=== PATIENT | male | born 1930 | race African-American/Black ===

== ENCOUNTER 2019-12-03 10:25 | Inpatient (IN) | payer OTHER ==
[~2019-12-03] VITALS: Ht 167.6 cm; Wt 83.1 kg
[2019-12-03 13:25] LABS: BASOPHIL % 0.1 % (0-2)
[2019-12-03 13:31] LABS: ALKALINE PHOSPHATASE 60 U/L (46-116); ALT/SGPT 37 U/L (16-63); AST/SGOT 18 U/L (15-37); BILIRUBIN TOTAL 0.3 mg/dL (0.20-1.00); CALCIUM 7.9 mg/dL (8.5-10.1); CARBON DIOXIDE 17.9 mmol/L (21-32); CHLORIDE SERUM 112 mmol/L (98-107); GLUCOSE SERUM 80 mg/dL (74-106); SODIUM SERUM 140 mmol/L (136-145)
[2019-12-03 13:36] LABS: PLATELET COUNT 79 x10^3mcL (130-400); RED CELL DISTRIBUTION WIDTH 16.5 % (11.5-14.5)
[2019-12-03 13:40] LABS: ALBUMIN 1.8 g/dL (3.4-5.0); CHOLESTEROL 112 mg/dL (<200); HDL CHOLESTEROL 33 mg/dL (40-60); TOTAL PROTEIN, SERUM 4.1 g/dL (6.4-8.2)
[2019-12-03 13:42] LABS: POTASSIUM SERUM 5.8 mmol/L (3.5-5.1)
[2019-12-04 01:02] LABS: UA SPECIFIC GRAVITY 1.015 (1.005-1.035); microscopic required? YES; urine erythrocyte 2+ (NEGATIVE)
[2019-12-04 05:43] LABS: CARBON DIOXIDE 17.7 mmol/L (21-32); CHLORIDE SERUM 112 mmol/L (98-107); GLUCOSE SERUM 103 mg/dL (74-106); SODIUM SERUM 140 mmol/L (136-145)
[2019-12-04 05:46] LABS: CREATININE SERUM 4.5 mg/dL (0.7-1.3); POTASSIUM SERUM 5.8 mmol/L (3.5-5.1)
[2019-12-04 06:08] LABS: BASOPHIL % 0 % (0-2); PLATELET COUNT 79 x10^3mcL (130-400); RED CELL DISTRIBUTION WIDTH 16.5 % (11.5-14.5)
[2019-12-04 10:31] VITALS: BP 106/47
[2019-12-04 13:00] VITALS: BP 91/53
[2019-12-04 17:16] VITALS: BP 99/57
[2019-12-04 21:55] VITALS: BP 107/52
[2019-12-05] MEDS ORDERED: MILLIPRED5 M1 PO (01:49)
[2019-12-05] MEDS ORDERED: BACO TOP (01:51)
[2019-12-05] MEDS ORDERED: CLOBETASOL PROP0.055 TOP (01:52)
[2019-12-05 06:02] VITALS: BP 131/62
[2019-12-05 07:09] VITALS: BP 125/56
[2019-12-05 08:37] LABS: CALCIUM 8.3 mg/dL (8.5-10.1); CARBON DIOXIDE 31.6 mmol/L (21-32); CHLORIDE SERUM 110 mmol/L (98-107); CREATININE SERUM 2.8 mg/dL (0.7-1.3); GLUCOSE SERUM 103 mg/dL (74-106); POTASSIUM SERUM 4.6 mmol/L (3.5-5.1); SODIUM SERUM 146 mmol/L (136-145)
[2019-12-05 08:52] LABS: BASOPHIL % 0.3 % (0-2)
[2019-12-05 08:58] LABS: PLATELET COUNT 59 x10^3mcL (130-400); RED CELL DISTRIBUTION WIDTH 15.9 % (11.5-14.5)
[2019-12-05] MEDS ORDERED: AMLODIPINE BESYL5 M2 PO (10:42)
[2019-12-05] MEDS ORDERED: TENORMIN100 MG PO (10:42)
[2019-12-05 10:43] LABS: RED BLOOD CELLS 3.34 M/mm3 (4.52-5.90)
[2019-12-05] MEDS ORDERED: LASIX20 MG PO (10:43)
[2019-12-05] MEDS ORDERED: HORIZANT300 MG PO (10:43)
[2019-12-05] MEDS ORDERED: LOSARTAN POTASS25 M1 PO (10:43)
[2019-12-05] MEDS ORDERED: LEVOXYL0.075 MG PO (10:46)
[2019-12-05] MEDS ORDERED: FLOMAX0.4 MG PO (10:47)
[2019-12-05 11:13] VITALS: BP 116/59
[2019-12-05 18:00] VITALS: BP 107/56
[2019-12-05 19:20] VITALS: BP 123/63
[2019-12-06 06:52] VITALS: BP 122/66
[2019-12-06 10:46] LABS: BASOPHIL % 0.3 % (0-2)
[2019-12-06 10:47] LABS: PLATELET COUNT 59 x10^3mcL (130-400); RED CELL DISTRIBUTION WIDTH 16.2 % (11.5-14.5)
[2019-12-06 11:01] LABS: CALCIUM 8.5 mg/dL (8.5-10.1); CARBON DIOXIDE 28.4 mmol/L (21-32); CHLORIDE SERUM 111 mmol/L (98-107); CREATININE SERUM 2.6 mg/dL (0.7-1.3); GLUCOSE SERUM 152 mg/dL (74-106); POTASSIUM SERUM 4.5 mmol/L (3.5-5.1); SODIUM SERUM 146 mmol/L (136-145)
[2019-12-06 14:46] VITALS: Ht 167.6 cm; Wt 83.1 kg
[2019-12-06 16:29] LABS: microscopic required? YES; urine erythrocyte 3+ (NEGATIVE)
[2019-12-06 17:26] VITALS: BP 122/58
[2019-12-07 06:00] VITALS: BP 116/51
[2019-12-07 06:48] LABS: BASOPHIL % 0.3 % (0-2); PLATELET COUNT 65 x10^3mcL (130-400); RED CELL DISTRIBUTION WIDTH 16.5 % (11.5-14.5)
[2019-12-07 06:56] LABS: CALCIUM 8.6 mg/dL (8.5-10.1); CARBON DIOXIDE 27.8 mmol/L (21-32); CHLORIDE SERUM 114 mmol/L (98-107); CREATININE SERUM 2.8 mg/dL (0.7-1.3); GLUCOSE SERUM 136 mg/dL (74-106); POTASSIUM SERUM 4.6 mmol/L (3.5-5.1); SODIUM SERUM 149 mmol/L (136-145)
[2019-12-07 08:00] VITALS: BP 118/70
[2019-12-07 12:10] VITALS: BP 114/72
[2019-12-07 17:30] VITALS: BP 124/74
[2019-12-07 20:05] VITALS: BP 137/72
[2019-12-08 06:43] VITALS: BP 126/71
[2019-12-08 08:30] VITALS: BP 159/81
[2019-12-08 10:17] LABS: CALCIUM 8.2 mg/dL (8.5-10.1); CARBON DIOXIDE 32.6 mmol/L (21-32); CHLORIDE SERUM 115 mmol/L (98-107); CREATININE SERUM 2.6 mg/dL (0.7-1.3); GLUCOSE SERUM 131 mg/dL (74-106); POTASSIUM SERUM 4.5 mmol/L (3.5-5.1); SODIUM SERUM 149 mmol/L (136-145)
[2019-12-08 10:25] LABS: BASOPHIL % 0.5 % (0-2); PLATELET COUNT 56 x10^3mcL (130-400); RED CELL DISTRIBUTION WIDTH 16.5 % (11.5-14.5)
[2019-12-08] MEDS ORDERED: TYL325 PO (10:58)
[2019-12-08] MEDS ORDERED: QUETIAPINE FUMA25 M1 PO (10:59)
[2019-12-08] MEDS ORDERED: PROS5 PO (10:59)
[2019-12-08] MEDS ORDERED: LEVAQUIN500 M1 PO (11:00)
[2019-12-08 18:29] LABS: BASOPHIL % 0.4 % (0-2); PLATELET COUNT 54 x10^3mcL (130-400); RED CELL DISTRIBUTION WIDTH 16.6 % (11.5-14.5)
[2019-12-08 21:54] VITALS: BP 110/58
[2019-12-09 07:17] LABS: CARBON DIOXIDE 29.9 mmol/L (21-32); CHLORIDE SERUM 113 mmol/L (98-107); CREATININE SERUM 2.3 mg/dL (0.7-1.3); GLUCOSE SERUM 138 mg/dL (74-106); POTASSIUM SERUM 4.4 mmol/L (3.5-5.1); SODIUM SERUM 146 mmol/L (136-145)
[2019-12-09 08:00] VITALS: BP 111/61
[2019-12-09 08:43] LABS: BASOPHIL % 0.4 % (0-2); PLATELET COUNT 54 x10^3mcL (130-400); RED CELL DISTRIBUTION WIDTH 16.4 % (11.5-14.5)
[2019-12-09 12:00] VITALS: BP 103/64
[2019-12-09 19:15] VITALS: BP 123/57
[2019-12-10 05:16] VITALS: BP 119/57
[2019-12-10 07:06] VITALS: BP 128/59
[2019-12-10 11:51] VITALS: BP 125/62
[2019-12-10 15:00] VITALS: BP 125/62
[2019-12-10 17:53] VITALS: BP 124/61
== END 2019-12-10 20:58 | disposition home or self-care (01) | DRG 682 ==
LOC: ED 10:25 → DU 15:25
PROVIDERS: Emergency Medicine; ADMIT Internal Medicine; ATTEND Internal Medicine
PROC: 02HV33Z Insertion of Infusion Device into Superior Vena Cava, Percutaneous Approach (ICD-10-PCS; principal; 2019-12-04)
PROC: B548ZZA Ultrasonography of Superior Vena Cava, Guidance (ICD-10-PCS; 2019-12-04)
DX: N17.9 Acute kidney failure, unspecified (principal); E43 Unspecified severe protein-calorie malnutrition; N39.0 Urinary tract infection, site not specified; E87.2 Acidosis; E87.5 Hyperkalemia; N18.4 Chronic kidney disease, stage 4 (severe); F03.90 Unspecified dementia, unspecified severity, without behavioral disturbance, psychotic disturbance, mood disturbance, and anxiety; Z88.0 Allergy status to penicillin; I12.9 Hypertensive chronic kidney disease with stage 1 through stage 4 chronic kidney disease, or unspecified chronic kidney disease; E11.22 Type 2 diabetes mellitus with diabetic chronic kidney disease; D64.9 Anemia, unspecified; E11.649 Type 2 diabetes mellitus with hypoglycemia without coma; N28.1 Cyst of kidney, acquired; Z68.25 Body mass index [BMI] 25.0-25.9, adult
CPT/HCPCS: 82962; 97110-GP; 97530-GP; G0378; J0610; J1630; J1644; J1956; J2060; J2405; J3490; J7030; J7042; J7070; J7512; P9047; Q0092